=== PATIENT | male | born 1990 | race Caucasian/White ===

== ENCOUNTER → 2016-07-20 | Outpatient (CLI) | payer OTHER | LOC: FIMAGING 08:05 | PROVIDERS: ATTEND Orthopaedic Surgery | DX: M25.511 Pain in right shoulder (principal) ==

== ENCOUNTER 2016-12-04 09:25 | Emergency (ER) | payer OTHER ==
[2016-12-04 09:31] VITALS: BP 130/96; PULSE 66; RESP 15; TEMP 98.2; O2SAT 92
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
== END 2016-12-04 10:14 | disposition home or self-care (01) ==
DX: S93.501A Unspecified sprain of right great toe, initial encounter (principal); S93.104A Unspecified dislocation of right toe(s), initial encounter; V49.49XA Driver injured in collision with other motor vehicles in traffic accident, initial encounter; Y92.410 Unspecified street and highway as the place of occurrence of the external cause; F17.200 Nicotine dependence, unspecified, uncomplicated

== ENCOUNTER 2017-06-14 11:31 | Emergency (ER) | payer OTHER ==
[2017-06-14 11:42] VITALS: O2SAT 97
--- NOTE | 2017-06-14 11:54 | EDPHY ---
H & P Stated Complaint: L hip area pain after fall 1 week ago Time Seen by Provider: 06/14/17 11:53 HPI/ROS: HPI: This is a 27-year-old male who presents with Chief Complaint: L hip area pain after fall 1 week ago Location: Left groin Quality: Injury Duration: 1 week ago Signs and Symptoms: No bleeding, no radiation, no numbness, no weakness, no tingling, no incontinence, no decreased range of motion, no swelling, + pain, no fever, no dysuria, no hematuria Timing: Acute, waxes and wane, intermittent episodes Severity: [id number] Context: Patient was in [place] snowboarding last weekend when he hit a jump and flew in the air approximately 20 ft. Upon landing both his hips flexed up into his chest and he rolled onto 1 of his sides. Denies LOC/head injury/neck pain/ dizziness/nausea/vomiting/amnesia. 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 He was seen in the emergency room and diagnosed with a groin strain, hip flexor injury. Today he had MRI which showed mild nondisplaced insufficiency sacral fracture. He presents to the emergency room today with concerns that he may have a left inguinal hernia request for it to be examined. 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 Taking anti- inflammatories with transient relief. Ambulatory without deficits. Denies any urinary symptoms. Having daily bowel movements without difficulty. Modifying Factors: See above Comment: ROS: see HPI Constitutional: No fever, no chills, no weight loss Eyes: No blurred vision Respiratory: No shortness of breath, no cough Cardiovascular: No chest pain Gastrointestinal: No nausea, no vomiting no diarrhea Genitourinary: No dysuria Extremities: No myalgias Neurologic: No weakness, no numbness Skin: No rashes Hematologic: No bruising, no bleeding MEDICAL/SURGICAL/SOCIAL HISTORY: Medical history: Generally healthy. Does not take any regular medications. Surgical history: bilateral shoulder replacement, L knee surgery repair ACL and meniscus, appendectomy Social history: Employed. CONSTITUTIONAL: Polite and cooperative, young adult white male, awake and alert , no obvious distress HEENT: Atraumatic and normocephalic. NECK: supple, no midline tenderness, flexion 45 degrees, extension 45 degrees, right and left lateral flexion 45 degrees. No meningismus. Cardiovascular: Normal S1/S2, regular rate, regular rhythm, without murmur rub or gallop. PULMONARY/CHEST: Symmetrical and nontender. no crepitus. Clear to auscultation bilaterally. Good air movement. No accessory muscle usage. ABDOMEN: Soft, nondistended, nontender, no ecchymosis. PELVIC: no pain with rocking; bilateral hips flexion 125 degrees, extension 30 degrees BACK: No midline tenderness, no paraspinous spasm, deep tendon reflexes 2/2, no pain with straight leg raise, No foot drop. Achilles reflexes are equal bilaterally. Able to walk on heels and toes without difficulty. Male : circumcised penis, bilateral descended testes, no testicular swelling, no testicular masses, no penile discharge, no lesions, no hernia appreciated, negative Prehn's sign. EXTREMITIES: 2/2 pulses, strength 5/5, HIP: Flexion to 125, extension to 115 , hyper extension to 15, abduction to 45. Mild Pain with internal rotation and no pain external rotation. No tenderness over greater trochanter. Extensor mechanism intact. DIP/PIP/MCP flexion/extension intact with good light touch sensation. no deformities, no clubbing, no cyanosis or edema. NEUROLOGICAL: no focal neuro deficits. GCS 15. Light touch sensation intact. SKIN: Warm and dry, no erythema. no rash. Good capillary refill. Source: Patient Exam Limitations: No limitations - Personal History Current Tetanus/Diphtheria Vaccine: No Current Tetanus Diphtheria and Acellular Pertussis (TDAP): No - Medical/Surgical History Hx Asthma: No Hx Chronic Respiratory Disease: No Hx Diabetes: No Hx Cardiac Disease: No Hx Renal Disease: No Hx Cirrhosis: No Hx Alcoholism: No Hx HIV/AIDS: No Hx Splenectomy or Spleen Trauma: No Other PMH: bilat shoulder replacement, L knee surgery repair ACL and meniscus, appendectomy - Social History Smoking Status: Current some day smoker Constitutional: Initial Vital Signs Temperature (C) 36.7 C 06/14/17 11:40 Heart Rate 75 06/14/17 11:40 Respiratory Rate 16 06/14/17 11:40 Blood Pressure 127/88 H 06/14/17 11:40 O2 Sat (%) 97 06/14/17 11:40 O2 Delivery Mode Room Air Allergies/Adverse Reactions: Penicillins Allergy (Verified 12/04/16 09:27) vancomycin Allergy (Verified 12/04/16 09:27) Home Medications: Medication Instructions Recorded Cyclobenzaprine [Flexeril 10 MG 10 mg PO TID PRN #12 tab 06/14/17 (*)] oxyCODONE/APAP 5/325 [Percocet 1 - 2 tab PO Q4H PRN #10 tab 06/14/17 5/325 (*)] Medical Decision Making ED Course/Re-evaluation: Patient was reassured that he does not have an inguinal hernia. He is already set up with physical therapy that a store supposed to start next week. Exam is consistent with a groin strain. No signs of neurovascular compromise/tenting of skin/compartment syndrome/ extremities and joints examined above and below area of concern and are neurovascularly intact. Given pain medication and muscle relaxers for the interim This patient was seen under the supervision of my secondary supervising physician. I evaluated care for this patient independently. Differential Diagnosis: Differential diagnosis includes but is not limited to hernia incarceration, hamstring tear, quadriceps rupture, musculoskeletal sprain, IT band syndrome, groin strain. Departure - Departure Disposition: Home, Routine, Self-Care Clinical Impression: Strain of left inguinal muscle Qualifiers: Encounter type: initial encounter Qualified Code(s): S39.013A - Strain of muscle, fascia and tendon of pelvis, initial encounter Condition: Good Instructions: Groin Strain (ED) Additional Instructions: Take Tylenol 650 mg every 4 hours and/or Ibuprofen 600 mg every 8 hours with food as needed for pain. Use Percocet every 6 hours as needed for severe/break through pain. Do not use Tylenol and Percocet concomitantly. Use Flexeril every 8 hr as needed for muscle spasms. Rest as much as possible until you are feeling better. Start physical therapy next week. Follow-up with Orthopedics if physical therapy is not improving your symptoms. Do not resume physical contact activities until all pain resolved. Referrals: PCP Not In,Dictionary [Medical Doctor] - As per Instructions Prescriptions: Cyclobenzaprine [Flexeril 10 MG (*)] 10 mg PO TID PRN #12 tab PRN Reason: Spasms oxyCODONE/APAP 5/325 [Percocet 5/325 (*)] 1 - 2 tab PO Q4H PRN #10 tab PRN Reason: Pain, Severe
[2017-06-14 12:23] VITALS: BP 135/78; PULSE 78; RESP 18; TEMP 98.6
== END 2017-06-14 12:23 | disposition home or self-care (01) ==
DX: S39.013A Strain of muscle, fascia and tendon of pelvis, initial encounter (principal); F17.200 Nicotine dependence, unspecified, uncomplicated; V00.311A Fall from snowboard, initial encounter; Y99.8 Other external cause status; Y93.23 Activity, snow (alpine) (downhill) skiing, snowboarding, sledding, tobogganing and snow tubing